=== PATIENT | male | born 1985 | race Caucasian/White ===

== ENCOUNTER 2018-02-26 12:54 | Emergency (ER) | payer OTHER ==
[2018-02-26 13:08] VITALS: BP 141/91; PULSE 105; TEMP 100; BMI 36.5
--- NOTE | 2018-02-26 13:55 | PDOC ---
History of Present Illness - General Chief Complaint: Cold Symptoms Stated Complaint: CONGESTION, COUGH Time Seen by Provider: 02/26/18 13:34 History Source: Patient Exam Limitations: No Limitations - History of Present Illness Timing/Duration: reports: constant, getting worse Severity: reports: moderate Associated Symptoms: reports: cough, fever/chills Past History - Travel Traveled outside of the country in the last 30 days: No Close contact w/someone who was outside of country & ill: No - Past Medical History Allergies/Adverse Reactions: Allergies Allergy/AdvReac Type Severity Reaction Status Date / Time No Known Allergies Allergy Verified 02/26/18 13:01 Home Medications: Ambulatory Orders Amox-Tr/K Cl [Augmentin 875Mg Tablet] 1 tab PO BID #20 tablet 02/26/18 COPD: No Other medical history: denies - Suicide/Smoking/Psychosocial Hx Smoking History: Never smoked Information on smoking cessation initiated: No Hx Alcohol Use: No Drug/Substance Use Hx: No Substance Use Type: None Review of Systems - Review of Systems Able to Perform ROS?: Yes Is the patient limited [place] proficient: Yes Constitutional: Yes: Symptoms Reported, See HPI, Malaise HEENTM: Yes: Nose Congestion, Difficulty Swallowing Respiratory: Yes: Cough Integumentary: Yes: See HPI. No: Symptoms Reported *Physical Exam - Vital Signs Last Vital Signs Temp Pulse Resp BP Pulse Ox 100 F H 105 H 18 141/91 100 02/26/18 12:58 02/26/18 12:58 02/26/18 12:58 02/26/18 12:58 02/26/18 12:58 - Physical Exam General Appearance: Yes: Nourished, Appropriately Dressed, Apparent Distress, Moderate Distress HEENT: positive: MIREYA, TMs Normal (congested but landmarks visualized), Pharyngeal Erythema (with posterior sinus drainage white thick), Rhinorrhea ( thick white drainage), Sinus Tenderness, Other (face slightly swollen,) Neck: positive: Supple, Lymphadenopathy (R), Lymphadenopathy (L). negative: Tender Respiratory/Chest: positive: Lungs Clear, Normal Breath Sounds, Other. negative : Wheezing Gastrointestinal/Abdominal: positive: Soft. negative: Tender Integumentary: positive: Dry, Warm, Pale Neurologic: positive: pressure supervisor II-XII NML intact, Fully Oriented, Alert, Normal Mood/ Affect, Normal Response, Motor Strength 5/5 Progress Note - Progress Note Progress Note: Sinusitis, will treat with Augmentin *DC/Admit/Observation/Transfer Diagnosis at time of Disposition: Sinusitis Qualifiers: Sinusitis location: frontal Chronicity: acute Recurrence: not specified as recurrent Qualified Code(s): J01.10 - Acute frontal sinusitis, unspecified - Discharge Dispostion Disposition: HOME Condition at time of disposition: Stable Admit: No - Referrals Referrals: Shiv Tripp MD [Staff Physician] - - Patient Instructions Printed Discharge Instructions: DI for Sinusitis Additional Instructions: Rest, drink lots of fluids: Teas, water, soups Saltwater gargles. Consider humidifier in room at night Steamy showers/seem to face break up mucus Avoid contact with allergens, exposure to pollens, close windows on a windy day Lots of handwashing and good hygiene Continue [id number] medications for symptomatic relief- may use allergic eyedrops for itching I Continue antihistamines daily until pollen season is over; Zyrtec, Claritin, Janet during the daytime and Benadryl at nighttime as will make sleepy Tylenol or Motrin for fever and pain Augmentin 875 mg twice a day for 10 days Followup with private physician in one to 2 days as needed Consider following up with an compensation coordinator/stitch bonding machine tender helper for skin testing and possible allergy shots Return to emergency department for worsened symptoms, fevers, dehydration - Post Discharge Activity
[2018-02-26] MEDS ORDERED: IBUPROFEN 600 MG TABLET (FP) PO ONE ×2 (13:57→13:59)
--- NOTE | 2018-02-28 10:37 | EKG ---
Test Reason : Blood Pressure : / mmHG Vent. Rate : 109 BPM Atrial Rate : 109 BPM P-R Int : 122 ms QRS Dur : 090 ms QT Int : 324 ms P-R-T Axes : 066 010 -02 degrees QTc Int : 436 ms SINUS TACHYCARDIA POSSIBLE LEFT ATRIAL ENLARGEMENT POOR R WAVE PROGRESSION CANNOT RULE OUT ANTERIOR INFARCT , AGE UNDETERMINED ABNORMAL ECG NO PREVIOUS ECGS AVAILABLE Confirmed by MD Brandon, Cisco ([id number]) on 02/28/2018 10:37:38 AM Referred By: Confirmed By:Cisco Taylor MD
== END 2018-02-26 14:02 | disposition home or self-care (01) ==
LOC: JERFT 12:54
DX: J01.10 Acute frontal sinusitis, unspecified (principal)
CPT/HCPCS: 93005; 93010; 99281-25

== ENCOUNTER 2018-05-22 08:15 | Day surgery (SDC) | payer OTHER ==
[2018-05-22] MEDS ORDERED: PROPOFOL 20 ML ONE ×2 (08:57)
[2018-05-22] MEDS ORDERED: LIDOCAINE HCL 2% (20ML MULTI-DOSE VIAL) NR ONE (08:57)
[2018-05-22 09:05] VITALS: BMI 36.8
[2018-05-22 09:41] VITALS: TEMP 97.9
--- NOTE | 2018-05-22 10:05 | PROC ---
Endoscopy Procedure Endoscopy procedure completed. Please see scanned procedure report.
[2018-05-22 11:38] VITALS: BP 141/85; PULSE 68
--- NOTE | 2018-05-23 17:50 | PATH ---
Surgical Pathology Report Patient Name: SHAHBAZ CAMPOVERDE [facility]. Rec. #: [id number] /Age/Gender: 1985 (Age: 33) / M Account: [id number] Location: [facility]-ENDOSCOPY Taken: 05/22/2018 Received: 05/22/2018 Reported: 05/23/2018 Physicians: Morgan Alex M.D. Specimen(s) Received A: BX 2ND PORTION DUODENUM B: BX ANTRUM AND BODY C: BX GE JUNCTION Clinical History Dyspepsia Postoperative diagnosis: Gastritis, esophagitis Final Diagnosis A. SECOND PORTION DUODENUM, BIOPSY: DUODENAL MUCOSA WITH MILD CHRONIC DUODENITIS. B. ANTRUM AND BODY, BIOPSY: GASTRIC MUCOSA WITH MILD CHRONIC GASTRITIS. IMMUNOSTAIN IS NEGATIVE FOR H. PYLORI ORGANISMS. C. GE JUNCTION, BIOPSY: GASTROESOPHAGEAL JUNCTIONAL MUCOSA WITH ACTIVE CHRONIC INFLAMMATION AND CHANGES CONSISTENT WITH REFLUX ESOPHAGITIS. NEGATIVE FOR INTESTINAL METAPLASIA. Electronically Signed Juan Gamez M.D. Gross Description A. Received in formalin, labeled "biopsy second portion of duodenum" are 2 tovar, irregular portions of soft tissue measuring 0.2 and 0.3 cm. in greatest dimension. The specimens are submitted in toto in one cassette. B. Received in formalin, labeled "biopsy antrum and body" are 3 tovar, irregular portions of soft tissue ranging from 0.2-0.4 cm. in greatest dimension. The specimens are submitted in toto in one cassette. C. Received in formalin, labeled "biopsy GE junction" are 2 tovar, irregular portions of soft tissue measuring 0.3 and 04 cm. in greatest dimension. The specimens are submitted in toto in one cassette. /05/22/2018 [facility]05/22/2018
== END 2018-05-22 10:35 | disposition home or self-care (01) ==
LOC: JASU-ENDO 08:15
PROVIDERS: ATTEND Internal Medicine Gastroenterology
PROC: 0DB68ZX Excision of Stomach, Via Natural or Artificial Opening Endoscopic, Diagnostic (ICD-10-PCS; 2018-05-22)
PROC: 0DB58ZX Excision of Esophagus, Via Natural or Artificial Opening Endoscopic, Diagnostic (ICD-10-PCS; 2018-05-22)
PROC: 0DB98ZX Excision of Duodenum, Via Natural or Artificial Opening Endoscopic, Diagnostic (ICD-10-PCS; principal; 2018-05-22 09:00)
DX: K21.0 Gastro-esophageal reflux disease with esophagitis (principal); R13.10 Dysphagia, unspecified
CPT/HCPCS: 88305-TC; 88342-TC

== ENCOUNTER 2018-07-26 09:39 | Emergency (ER) | payer OTHER ==
[2018-07-26 09:50] VITALS: BP 143/87; PULSE 73; TEMP 97; BMI 36.5
--- NOTE | 2018-07-26 11:13 | PDOC ---
History of Present Illness - General Chief Complaint: Back Pain Stated Complaint: BACK PAIN Time Seen by Provider: 07/26/18 10:46 Exam Limitations: Clinical Condition - History of Present Illness Initial Comments: 07/26/18 11:09 Patient with no sig Past medical history present with complain of right-sided lower back pain of sudden onset 2 days ago when he bends over. Patient reported increased pain with movements and ambulation. Denies any radiation of pain. Denies any other symptoms Timing/Duration: other (2 days) Past History - Past Medical History Allergies/Adverse Reactions: Allergies Allergy/AdvReac Type Severity Reaction Status Date / Time No Known Allergies Allergy Verified 07/26/18 09:51 Home Medications: Ambulatory Orders Back Brace [Ultra Support] 1 each MC DAILY #1 each 07/26/18 Methocarbamol [Robaxin -] 500 mg PO TID PRN #21 tablet 07/26/18 Naproxen 500 mg PO BID PRN #20 tablet 07/26/18 COPD: No - Surgical History Abdominal Surgery: Yes (hernia repair) - Suicide/Smoking/Psychosocial Hx Smoking History: Never smoked Have you smoked in the past 12 months: No Hx Alcohol Use: Yes (social) Drug/Substance Use Hx: No Substance Use Type: None Review of Systems - Review of Systems Able to Perform ROS?: Yes Is the patient limited [place] proficient: No Constitutional: No: Symptoms Reported, See HPI, Chills, Diaphoresis, Fever, Loss of Appetite, Malaise, Night Sweats, Weakness, Weight Stable, Unintentional Wgt. Loss, Unexplained wgt Loss, Other HEENTM: No: Eye Pain, Blurred Vision, Tearing, Recent change in vision, Double Vision, Cataracts, Ear Pain, Ocular Prothesis, Ear Discharge, Nose Pain, Nose Congestion, Tinnitus, Nose Bleeding, Hearing Loss, Throat Pain, Throat Swelling , Mouth Pain, Dental Problems, Difficulty Swallowing, Mouth Swelling, Other Respiratory: No: Cough, Orthopnea, Shortness of Breath, SOB with Exertion, SOB at Rest, Stridor, Wheezing, Productive cough, Hemoptysis, Other Cardiac (ROS): No: Chest Pain, Edema, Irregular Heart Rate, Lightheadedness, Palpitations, Syncope, Chest Tightness, Other ABD/GI: No: Abdominal Distended, Abd. Pain w/ defecation, Blood Streaked Bowels , Constipated, Diarrhea, Difficulty Swallowing, Nausea, Poor Appetite, Poor Fluid Intake, Rectal Bleeding, Vomiting, Indigestion, Abdominal cramping, Tarry Stools, Other Musculoskeletal: Yes: See HPI, Back Pain (right lower back), Muscle Pain (right lower back). No: Muscle Weakness, Joint Stiffness All Other Systems: Reviewed and Negative *Physical Exam - Vital Signs Last Vital Signs Temp Pulse Resp BP Pulse Ox 97 F L 73 18 143/87 100 07/26/18 09:49 07/26/18 09:49 07/26/18 09:49 07/26/18 09:49 07/26/18 09:49 - Physical Exam Comments: 07/26/18 11:12 GENERAL: Well developed, well nourished. Awake and alert. No acute distress. HEENT: Normocephalic, atraumatic. PERRLA, EOMI. No conjunctival pallor. Sclera are non- icteric. Moist mucous membranes. Oropharynx is clear. NECK: Supple. Full ROM. No JVD. Carotid pulses 2+ and symmetric, without bruits. No thyromegaly. No lymphadenopathy. CARDIOVASCULAR: Regular rate and rhythm. No murmurs, rubs, or gallops. Distal pulses are 2+ and symmetric. PULMONARY: No evidence of respiratory distress. Lungs clear to auscultation bilaterally. No wheezing, rales or rhonchi. ABDOMINAL: Soft. Non-tender. Non-distended. No rebound or guarding. No organomegaly. Normoactive bowel sounds. MUSCULOSKELETAL : Mild tenderness to paravertebral muscle on the right of L4- S1.Normal range of motion at all joints. No bony deformities or tenderness. No CVA tenderness. EXTREMITIES: No cyanosis. No clubbing. No edema. No calf tenderness. SKIN: Warm and dry. Normal capillary refill. No rashes. No jaundice. NEUROLOGICAL: Alert, awake, appropriate. Cranial nerves 2-12 intact. No deficits to light touch and temperature in face, upper extremities and lower extremities. No motor deficits in the in face, upper extremities and lower extremities. Normoreflexic in the upper and lower extremities. Normal speech. Toes are down- going bilaterally. Gait is normal without ataxia. PSYCHIATRIC: Cooperative. Good eye contact. Appropriate mood and affect. General Appearance: Yes: Nourished, Appropriately Dressed. No: Apparent Distress ED Treatment Course - RADIOLOGY Radiology Studies Ordered: Category Date Time Status SPINE-LUMBAR SACRAL [RAD] Stat Radiology 07/26/18 11:01 Ordered Medical Decision Making - Medical Decision Making 07/26/18 11:12 Patient with no sig Past medical history presenting with complain of 2 days history of right lower back pain status post bending over. Exam significant for right paravertebral muscle tenderness .Symptoms likely muscle spasm. X-ray of lumbosacral ordered to rule out acute back pathology. Patient be discharge on NSAIDs and muscle relaxer with orthopedist follow-up if negative x-ray. *DC/Admit/Observation/Transfer Diagnosis at time of Disposition: Back spasm Lumbago Qualifiers: Chronicity: acute Back pain laterality: right Sciatica presence: without sciatica Qualified Code(s): M54.5 - Low back pain - Discharge Dispostion Disposition: HOME Condition at time of disposition: Stable Decision to Admit order: No - Prescriptions Prescriptions: Back Brace [Ultra Support] 1 each MC DAILY #1 each Methocarbamol [Robaxin -] 500 mg PO TID PRN #21 tablet PRN Reason: Back Pain Naproxen 500 mg PO BID PRN #20 tablet PRN Reason: Back Pain - Referrals Referrals: Inga Nichols MD [Primary Care Provider] - Claude Ballard MD [Staff Physician] - - Patient Instructions Printed Discharge Instructions: DI for Back Spasm Additional Instructions: Take prescribed medication as needed for back pain. Wear prescribed back brace daily until symptoms resolve. Follow up with preferred orthopedics if symptoms persist for more than 5 days - Post Discharge Activity Forms/Work/School Notes: Back to Work
== END 2018-07-26 12:10 | disposition home or self-care (01) ==
LOC: JERFT 09:39
DX: M62.830 Muscle spasm of back (principal)
CPT/HCPCS: 72100-TC-FY; 99281-25

== ENCOUNTER 2021-05-06 09:51 | Emergency (ER) | payer OTHER ==
[2021-05-07 12:08] LABS: SARS-CoV-2 NAA Not Detected (Not Detected)
== END 2021-05-06 12:19 | disposition home or self-care (01) ==
LOC: JVIRT 09:51
DX: Z20.822 Contact with and (suspected) exposure to COVID-19 (principal)
CPT/HCPCS: C9803; Q3014-GT; U0003; U0005

== ENCOUNTER 2021-09-07 05:56 | Emergency (ER) | payer OTHER ==
[2021-09-07 06:33] VITALS: BP 129/82; PULSE 71; TEMP 98.4; BMI 37.2
[2021-09-07] MEDS ORDERED: KETOROLAC TROMETHAMINE 60 MG/2 ML VIAL IM ONE (08:03)
[2021-09-07] MEDS ORDERED: KETOROLAC TROMETHAMINE 60 MG/2 ML VIAL ONE (08:04)
== END 2021-09-07 08:08 | disposition home or self-care (01) ==
LOC: JER 05:56
PROC: 3E0233Z Introduction of Anti-inflammatory into Muscle, Percutaneous Approach (ICD-10-PCS; principal; 2021-09-07)
DX: M54.50 Low back pain, unspecified (principal)
CPT/HCPCS: 99284-25

== ENCOUNTER 2024-06-26 08:15 | Emergency (ER) | payer SELFPAY ==
[2024-06-26 08:34] VITALS: BP 151/102; PULSE 76; RESP 16; TEMP 96.9; BMI 38.9
[2024-06-26] MEDS ORDERED: ACETAMINOPHEN INJECTION 100 ML IVPB ONE (09:25)
[2024-06-26] MEDS: ACETAMINOPHEN 500 MG TABLET (FP) PO ONE (09:30)
[2024-06-26 09:44] LABS: BASO % 1.2 % (0-2.0); HEMATOCRIT 43.9 % (35.4-49); LYMPH % 44.2 % (8-40); MCH 29.1 pg (25.7-33.7); MCHC 34.2 g/dl (32.0-35.9); MEAN CELL VOLUME 85.1 fl (80-96); MEAN PLT VOLUME 8.4 fl (7.5-11.1); MONO % 13.8 % (3.8-10.2); NEUT % 33.8 % (42.8-82.8); PLATELET COUNT 199 10^3/uL (134-434); RBC 5.15 M/mm3 (4.00-5.60); RDW 13.7 % (11.9-15.9); WHITE BLOOD COUNT 3.4 K/mm3 (4.0-10.0)
[2024-06-26 09:57] LABS: POTASSIUM 4.2 mmol/L (3.5-5.1)
[2024-06-26 09:58] LABS: CALCIUM 8.8 mg/dL (8.5-10.1)
[2024-06-26 09:59] LABS: BLOOD UREA NITROGEN 11.4 mg/dL (7-18)
[2024-06-26 10:02] LABS: CREATININE 0.9 mg/dL (0.55-1.3)
[2024-06-26 10:04] LABS: BILIRUBIN,TOTAL 0.6 mg/dL (0.2-1); TOT PROT 7.6 g/dl (6.4-8.2)
== END 2024-06-26 10:59 | disposition home or self-care (01) ==
LOC: JER 08:15
DX: R00.2 Palpitations (principal); R07.9 Chest pain, unspecified; R09.81 Nasal congestion; R05.9 Cough, unspecified; R20.2 Paresthesia of skin; R42 Dizziness and giddiness; R51.9 Headache, unspecified; R00.0 Tachycardia, unspecified; U07.1 COVID-19
CPT/HCPCS: 0241U-QW; 36415; 71045-TC-FY; 80053; 84484; 85025; 93005; 93010; 99285-25